=== PATIENT | male | born 1990 | race Two or more races ===

== ENCOUNTER 2022-10-19 19:13 | Emergency (ER) | payer OTHER ==
[~2022-10-19] VITALS: Ht 182.9 cm; Wt 77.1 kg
--- NOTE | 2022-10-19 19:40 | NUR ---
SHIRLEY FROM BUS CHASING SOMEONE. PLACED ON 5150 BY [employer]. PT IS VERBALLY AGGRESSIVE. REFUSING TO ANSWER ANY QUESTIONS. RR EVEN AND NON LABORED. SAFETY PRECAUTIONS IN PLACE. BELONGINGS OBTAINED AND SECURED IN LOCKER. SITTER AT BEDSIDE.
[2022-10-19] MEDS ORDERED: OLANZAPINE 10 MG VIAL IM ONE ×2 (20:10→20:30)
--- NOTE | 2022-10-19 20:39 | NUR ---
LAB AT BEDSIDE
[2022-10-19 20:56] LABS: BASOPHILS # (AUTO) 0.1 K/uL (0.0-0.2); BASOPHILS % (AUTO) 0.6 % (0.0-2.0); EOSINOPHILS % (AUTO) 1.5 % (0.0-6.0); HEMATOCRIT 38 % (39-51); HEMOGLOBIN 12.8 g/dL (13.5-17.5); LYMPHOCYTES # (AUTO) 2.9 K/uL (0.8-4.8); LYMPHOCYTES % (AUTO) 32.9 % (20.0-44.0); MEAN CORPUSCULAR HGB CONC 34 g/dl (31.0-36.0); MEAN CORPUSCULAR VOLUME 85 fL (80-96); MONOCYTES # (AUTO) 0.9 K/uL (0.1-1.30); MONOCYTES % (AUTO) 10.6 % (2.0-12.0); NEUTROPHILS # (AUTO) 4.7 K/uL (1.8-8.9); NEUTROPHILS % (AUTO) 54.4 % (43.0-81.0); PLATELET COUNT (AUTO) 248 K/uL (150-450); RED BLOOD CELL COUNT(AUTO) 4.42 MIL/uL (4.5-6.0); WHITE BLOOD COUNT (AUTO) 8.7 K/uL (4.3-11.0)
[2022-10-19 21:06] LABS: CALCIUM, SERUM 8.9 mg/dL (8.5-10.1); CARBON DIOXIDE 25 mmol/L (21-32); CHLORIDE 105 mmol/L (98-107); GLUCOSE 94 mg/dL (74-106); POTASSIUM 2.9 mmol/L (3.5-5.1); SODIUM SERUM 139 mmol/L (136-145); UREA NITROGEN, BLOOD 17 mg/dL (7-18)
[2022-10-19 21:11] LABS: ALANINE AMINOTRANSFERASE 41 U/L (12-78); ALBUMIN 3.7 g/dL (3.4-5.0); ALKALINE PHOSPHATASE 89 U/L (46-116); ASPARTATE AMINOTRANSFERASE 33 U/L (15-37); BILIRUBIN,DIRECT 0.2 mg/dL (0.0-0.2); BILIRUBIN,TOTAL 0.7 mg/dL (0.2-1.0); TOTAL PROTEIN, SERUM 7.4 g/dL (6.4-8.2)
[2022-10-19 21:13] LABS: ALCOHOL, BLOOD < 3 mg/dL (0-10)
[2022-10-19 21:32] LABS: BILIRUBIN,URINE 2+ (NEGATIVE); COLOR,URINE YELLOW (YELLOW); LEUKOCYTE ESTERASE ,URINE NEGATIVE (NEGATIVE); NITRITE, URINE NEGATIVE (NEGATIVE); PH,URINE 5.5 (5.0-8.0); PROTEIN,URINE 1+ mg/dl (NEGATIVE); UGLUCOSE NEGATIVE (NEGATIVE)
[2022-10-19 21:37] LABS: BACTERIA,URINE None seen /HPF (None Seen); RBC,URINE 0-2 /HPF (0-2); WBC,URINE 0-2 /HPF (0-3)
[2022-10-19 21:38] LABS: MUCUS,URINE Moderate /LPF (None Seen)
[2022-10-19] MEDS ORDERED: POTASSIUM CHLORIDE 20 MEQ TAB.PRT.SR PO ONE (22:00)
[2022-10-20] MEDS ORDERED: LORAZEPAM INJ 2 MG/ML VIAL IM ONE ×2 (00:30→11:30)
[2022-10-20] MEDS ORDERED: LORAZEPAM INJ 2 MG/ML VIAL ONE ×2 (00:34→09:53)
--- NOTE | 2022-10-20 07:35 | NUR ---
PAGED ART, SMALL ARMS ARTILLERY REPAIRER TO COME SEE PT. ART ON HIS WAY, NO ETA PROVIDED.
[2022-10-20] MEDS ORDERED: HALOPERIDOL LACTATE INJ 5 MG/ML VIAL ONE (09:53)
[2022-10-20] MEDS ORDERED: diphenhydrAMINE HCL 50 MG/ML VIAL ONE (09:53)
[2022-10-20] MEDS ORDERED: LORAZEPAM INJ 2 MG/ML VIAL IVP ONE (10:00)
[2022-10-20] MEDS ORDERED: diphenhydrAMINE HCL 50 MG/ML VIAL IM ONE (10:00)
[2022-10-20] MEDS ORDERED: HALOPERIDOL LACTATE INJ 5 MG/ML VIAL IM ONE (10:00)
--- NOTE | 2022-10-20 10:00 | NUR ---
PT AGITATED, REFUSING TO STAY IN BED, DR DAHL AWARE. MEDICATED ORDERED. SEE EMAR.
[2022-10-20] MEDS ORDERED: OLANZAPINE 5 MG TABLET ONE ×2 (10:15→17:51)
[2022-10-20] MEDS ORDERED: DIVALPROEX SODIUM 500 MG TABLET.DR PO ONE ×2 (10:15→17:50)
[2022-10-20] MEDS: DIVALPROEX SODIUM 500 MG TABLET.DR PO SCH ×2 (10:27→17:57)
[2022-10-20] MEDS: OLANZAPINE ZYDIS 5 MG TAB.RAPDIS PO SCH ×2 (10:27→17:57)
--- NOTE | 2022-10-20 11:31 | NUR ---
Referrals: SW sent referrals: [facility] [address] [facility] [address]; Unit TEL: [phone] Intake [facility] TEL: [phone] fax: [phone]. [facility] tel:[phone] FAX:[phone]; [phone]. [facility] FAX: [phone] TEL:[phone]
--- NOTE | 2022-10-20 12:21 | NUR ---
Referral: [facility] [place] tel:[phone]; clinicals sent
--- NOTE | 2022-10-20 12:23 | NUR ---
Facility contact: [facility] tel:[phone] FAX:[phone]; [phone], denied no beds.
--- NOTE | 2022-10-20 13:11 | NUR ---
THE PATIENT IS ACCEPTED TO [facility] PER SOCAL WORKER RAMANDEEP.
--- NOTE | 2022-10-20 13:28 | NUR ---
FACILITY CONTACT: SW CONTACTED [facility] [address] [place] [address]; Unit TEL: [phone] Intake AND SPOKE WITH RENATO FROM INTAKE WHO STATED THAT PT IS ACCEPTED AND [facility] INSTRU[facility] WILL CONTACT THE ER TO GIVE NURSING REPORT NUMBER.
--- NOTE | 2022-10-20 14:29 | NUR ---
FACILITY CONTACT: CONTACTED [facility] [address] [place] [address]; Unit TEL: [phone] Intake AND SPOKE WITH OMA FROM INTAKE WHO STATED THAT THEY ARE CURRENTLY ACCOMMODATING BEDS FOR THEIR ED PTS AND THEY MIGHT HAVE BEDS AVAILABLE AT 4PM.
--- NOTE | 2022-10-20 14:41 | NUR ---
PT ACCEPTED AT [facility] PER BREAKER MACHINE TENDER. AWAITING DETAILS.
--- NOTE | 2022-10-20 14:45 | NUR ---
[facility] [phone] STATED THEY ARE SAVING A BED FOR PT. THEY REQUESTED PT'S VITALS AND SW FAXED. THEY WILL CONTACT THIS E COMMERCE SPECIALIST FOR MORE INFORMATION OF ACCEPTANCE. Addendum: 10/20/22 at 1502 by SHELBI spoke with Herlinda in intake
--- NOTE | 2022-10-20 15:09 | NUR ---
[facility] accepted pt. TODD spoke with Herlinda from intake [phone] who stated pt is accepted at [facility] address: [address] [place] [address]. Nursing report to contact this [phone]. Pt accepted at Unit 2, room 1303 B. Herlinda stated to contact in 30 mins. Under the care of Dr. Monteiro. TODD notifed ER staff.
--- NOTE | 2022-10-20 15:09 | NUR ---
ACCEPTED TO [facility] GOING TO - UNIT 2 ROOM 1030-B REPORT # - [phone] DR Brit WILSON pls. call in 30min.
--- NOTE | 2022-10-20 15:50 | NUR ---
[facility]ORT ARRANGED. ETA 1814
[2022-10-20 16:03] VITALS: BP 131/87
--- NOTE | 2022-10-20 17:21 | NUR ---
NURSE FIELDING FROM [facility] REFUSED TO GET REPORT BECAUSE THE PATIENT`S POTASSIUM IS 2.9. [facility] REQUESTING POTASSIUM REPLACEMENT AND RECHECK POTASSIUM PRIOR TAKING THE PATIENT. DR RAFAELA DE LEÓN.
[2022-10-20] MEDS ORDERED: POTASSIUM CHLORIDE 20 MEQ POWDER PACKET PO ONE (17:30)
[2022-10-20] MEDS ORDERED: POTASSIUM CHLORIDE 20 MEQ POWDER PACKET ONE (17:45)
[2022-10-20] MEDS ORDERED: POTASSIUM CHLORIDE 20 MEQ TAB.PRT.SR PO ONE (17:51)
--- NOTE | 2022-10-20 18:18 | NUR ---
REPORT GIVEN TO NURSE FIELDING FROM [facility]. THE FACILITY OK TO TAKE THE PATIENT WITHOUT REPEAT POTASSIUM PER NURSE FIELDING.
--- NOTE | 2022-10-20 18:20 | NUR ---
REPORT GIVEN TO AMBULANCE STAFF
--- NOTE | 2022-10-20 18:48 | NUR ---
PICKED UP BY TRANSPORT GOING TO [facility]. ALL NECESSERY PAPERS PROVIDED
--- NOTE | 2022-10-20 18:48 | NUR ---
THE PATIENT IS TRANSFERED TO [facility] IN STABLE CONDITION VIA ARRANGED TRANSPO.
== END 2022-10-20 18:49 ==
LOC: EDBD 19:28 → ER 19:28
DX: R46.1 Bizarre personal appearance (principal); R06.02 Shortness of breath; Z20.822 Contact with and (suspected) exposure to COVID-19; Z59.00 Homelessness unspecified
CPT/HCPCS: 99285; 96372 ×2; 93005; 85025; 80048; 80076; 81001; 36415; 87426; 80143; 80320; 80307; J3490; C9803; J2060 ×2; J1200; J1630; G0480

== ENCOUNTER 2024-03-24 18:27 | Emergency (ER) | payer MEDICAID, OTHER ==
[~2024-03-24] VITALS: Ht 182.9 cm; Wt 95.3 kg
[2024-03-24 18:39] VITALS: TEMP 95.4
[2024-03-24] MEDS ORDERED: CLOT15CR27 TP (20:49)
[2024-03-24 22:26] VITALS: BP 134/93; O2SAT 95
== END 2024-03-24 23:03 ==
LOC: ER 18:31
DX: L89.229 Pressure ulcer of left hip, unspecified stage (principal); B35.6 Tinea cruris; G82.20 Paraplegia, unspecified; Z86.69 Personal history of other diseases of the nervous system and sense organs; Z59.00 Homelessness unspecified